=== PATIENT | male | born 1970 | race Two or more races ===

== ENCOUNTER 2019-06-13 02:56 | Emergency (ER) | payer BC ==
[~2019-06-13] VITALS: Ht 167.6 cm; Wt 75.0 kg
[2019-06-13] MEDS ORDERED: ACETAMINOPHEN 500 MG TABLET PO ONE (03:30)
[2019-06-13] MEDS ORDERED: IV NORMAL SALINE 1000ML BAG 1,000 ML IV SCH (03:30)
--- NOTE | 2019-06-13 04:12 | RAD ---
PORTABLE CHEST 1V Clinical Indication: Cough and fever. Comparison: None. Findings: The cardiomediastinal silhouette is normal. Mild bibasilar airspace disease. Lungs are otherwise clear. There is no pneumothorax. No pleural effusion is appreciated. No acute bone abnormality. IMPRESSION: Mild bibasilar airspace disease may be atelectasis or early pneumonia. Electronically signed by: Clayton Toribio MD (06/13/2019 4:09 AM) [id number]
--- NOTE | 2019-06-13 04:19 | PHYS DOC ---
General Adult EDM: Chief Complaint: FEVER HPI: HPI: Patient is a 49 year old male who presents with complaint of cough and fever for the last 3 days. Patient states that symptoms are getting worse over time. Patient is not sure how high his fevers 2 at home. He denies any chest pain but does indicate that he gets some shortness of breath with exertion. Patient denies any vomiting or diarrhea.h [] Review of Systems: Review of Systems: Constitutional: Denies fever or chills. [] Respiratory: complains of cough and exertional shortness of breath. [] Cardiovascular: Denies chest pain or edema. [] GI: Denies abdominal pain, nausea, vomiting or diarrhea. [] Neurologic: Denies headache, focal weakness or sensory changes. [] A full 10 point review of systems has been reviewed and is otherwise negative except as noted on history of present illness. Heart Score: Risk Factors: Risk Factors: DM, Current or recent (<one month) smoker, HTN, HLP, family history of CAD, obesity. Risk Scores: Score 0 - 3: 2.5% MACE over next 6 weeks - Discharge Home Score 4 - 6: 20.3% MACE over next 6 weeks - Admit for Clinical Observation Score 7 - 10: 72.7% MACE over next 6 weeks - Early Invasive Strategies Current Medications: Current Medications Medications (Trade) Dose Ordered Sig/Jasmin Start Time Stop Time Status Last Admin Dose Admin Acetaminophen (Tylenol) 1,000 mg 1X ONCE 06/13/19 03:30 06/13/19 03:31 DC Sodium Chloride 1,000 ml @ 1,000 mls/hr Q1H 06/13/19 03:30 06/13/19 04:29 Allergies: Allergies: Allergies Coded Allergies Type Severity Reaction Last Updated Verified Unable to Assess 06/13/19 No Physical Exam: PE: Constitutional: Well developed, well nourished, no acute distress, non-toxic appearance. [] HENT: Normocephalic, atraumatic, bilateral external ears normal, oropharynx moist, no oral exudates, nose normal. [] Eyes: PERRLA, EOMI, conjunctiva normal, no discharge. [] Neck: Normal range of motion, no tenderness, supple, no stridor. [] Cardiovascular:Heart rate regular rhythm, no murmur [] Lungs & Thorax: fine rhonchi are noted bilaterally to auscultation [] Abdomen: Bowel sounds normal, soft, no tenderness. [] Skin: Warm, dry, no erythema, no rash. [] Extremities: No tenderness, no cyanosis, no clubbing, ROM intact, no edema. [] Neurologic: Alert and oriented X 3, no focal deficits noted. [] EKG: EKG: [] Radiology/Procedures: Radiology/Procedures: [] Impression: 1 view chest demonstrates bibasal or consolidative process, consistent with pneumonia Course & Med Decision Making: Course & Med Decision Making Pertinent Labs and Imaging studies reviewed. (See chart for details) [] Dragon Disclaimer: Dragon Disclaimer: This electronic medical record was generated, in whole or in part, using a voice recognition dictation system. Departure Departure Impression: Primary Impression: Pneumonia Qualified Codes: J18.9 - Pneumonia, unspecified organism Additional Impression: Suspected COVID-19 virus infection Disposition: HOME, SELF-CARE Condition: STABLE Patient Instructions: Pneumonia, Adult Scripts Azithromycin (ZITHROMAX) 250 Mg Tablet 1 PKG PO UD, #6 TAB Prov: INDER GOODMAN Jr. DO 06/13/19 Amoxicillin/Potassium Clav (AUGMENTIN 875-125 TABLET) 1 Each Tablet 1 TAB PO BID for 10 Days, #20 TAB 0 Refills Prov: INDER GOODMAN Jr. DO 06/13/19 INDER GOODMAN Jr. DO June 13, 2019 04:19
[2019-06-13 04:34] LABS: CALCIUM 7.8 mg/dL (8.5-10.1); GFR 79.1; POTASSIUM 3.1 mmol/L (3.5-5.1)
[2019-06-13 04:40] LABS: ALBUMIN 3.2 g/dL (3.4-5.0); ALBUMIN/GLOBULIN RATIO 0.8 (1.0-1.7); TOTAL BILIRUBIN 0.4 mg/dL (0.2-1.0); TOTAL PROTEIN 7.3 g/dL (6.4-8.2)
[2019-06-13 04:44] LABS: INFLUENZA A PATIENT NEGATIVE (NEGATIVE); INFLUENZA B PATIENT NEGATIVE (NEGATIVE)
[2019-06-13 04:58] LABS: BASO % 0 % (0-3); EOS % 0 % (0-3); HEMATOCRIT 40.9 % (39.0-53.0); HEMOGLOBIN 13.6 g/dL (13.0-17.5); LYMPH # 0.7 x10^3/uL (1.0-4.8); LYMPH % 17 % (24-48); MEAN CORPUSCULAR HEMOGLOBIN 28 pg (25-35); MEAN CORPUSCULAR HGB CONC 33 g/dL (31-37); MEAN CORPUSCULAR VOLUME 83 fL (79-100); MONO # 0.3 x10^3/uL (0.0-1.1); MONO % 8 % (0-9); NEUT # 3.1 x10^3/uL (1.8-7.7); NEUT % 75 % (31-73); PLATELET COUNT 156 x10^3/uL (140-400); RED BLOOD COUNT 4.91 x10^6/uL (4.30-5.70); RED CELL DISTRIBUTION WIDTH 12.6 % (11.5-14.5); WHITE BLOOD COUNT 4.2 x10^3/uL (4.0-11.0)
[2019-06-13 05:32] LABS: BILIRUBIN,URINE NEGATIVE (NEG); CLARITY,URINE CLEAR; COLOR,URINE YELLOW; NITRITE,URINE NEGATIVE (NEG); PH,URINE 6.5 (<5.0-8.0); PROTEIN,URINE NEGATIVE (NEG-TRACE); UROBILINOGEN,URINE 0.2 mg/dL (0.2 mg/dL)
[2019-06-13] MEDS ORDERED: AZITHROMYCIN 250 MG TABLET. PO ONE (05:45)
[2019-06-13] MEDS ORDERED: AZIT250T PO (05:45)
[2019-06-13] MEDS ORDERED: POTASSIUM CHLORIDE 20 MEQ TABLET.ER. PO ONE (05:45)
[2019-06-13] MEDS ORDERED: AMOX1TAB61 PO (05:45)
[2019-06-13 05:46] VITALS: BP 136/95
[2019-06-13 05:57] LABS: BACTERIA,URINE 0 /HPF (0-FEW); RBC,URINE OCC /HPF (0-2); SQUAMOUS EPITHELIAL CELL,UR FEW /LPF; WBC,URINE 0 /HPF (0-4)
== END 2019-06-13 06:50 | disposition home or self-care (01) ==
LOC: ER 02:56
DX: U07.1 COVID-19 (principal); J18.9 Pneumonia, unspecified organism; R05 Cough
CPT/HCPCS: 36415; 71045; 80053; 81001; 83605; 85025; 87040; 87070; 87635; 87804; 87880; 99284; J7030